=== PATIENT | female | born 2000 | race Caucasian/White ===

== ENCOUNTER 2020-01-25 17:58 | Outpatient (REF) | payer MEDICAID, SELFPAY | END 2020-01-25 17:59 | disposition home or self-care (01) | LOC: HO.LAB 17:58 | PROVIDERS: Visit Provider Internal Medicine | DX: Z20.828 Contact with and (suspected) exposure to other viral communicable diseases (principal) | CPT/HCPCS: C9803; U0003 ==

== ENCOUNTER 2022-10-11 05:15 | Emergency (ER) | payer OTHER, SELFPAY ==
--- NOTE | ~2022-10-11 | US_ITS ---
EXAMINATION: US PELVIS CLINICAL INFORMATION: Right pelvic pain COMPARISON: None available. TECHNIQUE: Ultrasound of the pelvis is performed using both transabdominal and transvaginal transducers along with Doppler. Transvaginal imaging is performed due to inadequate visualization transabdominally. FINDINGS: Uterus: The uterus is anteverted and measures 7.6 x 1.8 x 3.7 cm. The double wall endometrial thickness is 5 mm. The uterus is smooth in contour and has normal myometrial echogenicity. No visible fibroid. Adnexa: Both ovaries are visualized. There is normal color flow to the adnexa. There is no ovarian torsion. There is no pelvic ascites or fluid collection. Normal arterial and venous spectral waveforms are seen bilaterally. Right ovary measures 7.4 x 5.2 x 7.4 cm. There is a simple appearing right ovarian cyst measuring 6.9 x 5.1 x 6.8 cm . Left ovary measures 2.8 x 1.9 x 2 cm. US/US pelvic and transvaginal IMPRESSION: No evidence of active ovarian torsion at this time. 6.9 cm right ovarian cyst likely simple. Consider short-term follow-up US or MR w/IV contrast in less than 3 months. Reference: Radiology 2019 Nov;293(2):359-371
[2022-10-11 05:19] VITALS: BP 151/92; PULSE 79; RESP 16; TEMP 37.1; O2SAT 100; BMI 29.7
[2022-10-11 05:33] VITALS: BP 150/76; PULSE 99; RESP 17; TEMP 36.9; O2SAT 100
[2022-10-11 05:52] LABS: Hematocrit 38.7 % (37.0-47.0); Hemoglobin 13.3 g/dl (12.0-16.0); Mean Corpuscular HGB Conc 34.4 g/dl (31.0-35.0); Mean Corpuscular Volume 87.4 fL (80.0-98.0); Mean Platelet Volume 10.7 fL (9.4-12.3); Platelet Count 245 X10*3/uL (160-400); Red Blood Count 4.43 X10*6/uL (4.20-5.50); Red Cell Distribution Width 12.3 % (11.0-16.0); White Blood Count 6.3 X10*3/uL (4.8-10.8)
--- NOTE | 2022-10-11 05:54 | ED.ABDPAIN ---
HPI - Abdominal Pain General Chief Complaint: Abdominal Pain Stated Complaint: Abd pain Time Seen by Provider: 10/11/22 05:54 Source: patient Mode of arrival: ambulatory Limitations: no limitations History of Present Illness HPI narrative: Patient otherwise healthy noticed pain in right lower quadrant for the last 5 days off and on no nausea vomited only once no radiation of pain with movements or a food no fever or chills does have urge to urinate but no dysuria frequency no history of hematuria no history of kidney stone or ovarian cyst no vaginal discharge Related Data Previous Rx's Medication Instructions Recorded ibuprofen 600 mg tablet 600 mg PO Q6H PRN fever or pain 10/11/22 #30 tabs tramadol 50 mg tablet 50 mg PO Q6H PRN pain #20 tabs 10/11/22 Allergies Allergy/AdvReac Type Severity Reaction Status Date / Time No Known Allergies Allergy Verified 10/11/22 05:26 Review of Systems Review of Systems Yes all other systems are reviewed and are negative PMFSH Social History Social History Advance Directives: No Advance Directives Information Provided: Yes Physical Exam ED Vital Signs: Vital Signs - 24 hr 10/11/22 05:19 10/11/22 05:33 Temperature 98.7 F 98.5 F Pulse Rate 79 99 Respiratory Rate 16 17 Blood Pressure 151/92 H 150/76 H Pulse Oximetry 100 100 Oxygen Delivery Method Room Air Room Air BMI result Body Mass Index 29.7 Appearance: Alert. Oriented X3. No acute distress. ENT: Pharynx normal. Oral Mucosa moist Neck: Normal inspection. Neck supple. CVS: Normal heart rate and rhythm. Pulses normal. Respiratory: No respiratory distress. Equal air entry bilateral, no wheezing/rales/rhonchi Abdomen: Soft, mild deep tenderness right lower quadrant no rebound tenderness or guarding. Bowel sounds are present, no mass palpable, no CVA tenderness Skin: Skin warm and dry. Normal skin color. Normal skin turgor. Extremities: No lower extremity edema. No calf tenderness Neuro: Oriented X 3. Medical Decision Making Medical Decision Making MDM Narrative: Patient nonspecific pain in right lower abdomen for last 5 days with normal labs unlikely appendicitis/kidney stone will get ultrasound to rule out ovarian cyst Patient ultrasound showed 7 cm ovarian cyst with good blood flow no signs of torsion patient without any significant pain advised to follow with [facility] Differential Diagnosis Differential Diagnoses: The differential diagnosis associated with the presentation includes Ovarian cyst/kidney stone/appendicitis/UTI Lab Data MDM Lab Attestation statement: I reviewed the patient's lab results. 10/11/22 05:44 10/11/22 05:44 Labs: Lab Results 10/11/22 10/11/22 10/11/22 Range/Units 05:44 05:44 05:44 WBC 6.3 (4.8-10.8) X10*3/uL RBC 4.43 (4.20-5.50) X10*6/uL Hgb 13.3 (12.0-16.0) g/dl Hct 38.7 (37.0-47.0) % MCV 87.4 (80.0-98.0) fL MCH 30.0 (27.0-33.0) pg MCHC 34.4 (31.0-35.0) g/dl RDW 12.3 (11.0-16.0) % Plt Count 245 (160-400) X10*3/uL MPV 10.7 (9.4-12.3) fL Absolute Nucleated RBC 0.000 (0.0-0.012) X10*3/uL Nucleated RBC % (auto) 0.0 (0.0-0.2) /100WBC Sodium 141 (135-145) mmol/L Potassium 3.2 L (3.3-5.1) mmol/L Chloride 110 H (96-108) mmol/L Carbon Dioxide 23 (22-29) mmol/L Anion Gap 11 L (12-20) BUN 6 L (9-16) mg/dL Creatinine 0.77 (0.5-1.4) mg/dL Estim Creat Clear Calc 114.2 Estimated GFR > 60 Random Glucose 117 H (60-115) mg/dL Calcium 10.0 (8.4-10.2) mg/dL Total Bilirubin 0.8 (0.0-1.0) mg/dL AST 14 (5-31) U/L ALT 18 (0-31) U/L Alkaline Phosphatase 40 (39-117) U/L Total Protein 7.6 (6.5-8.0) g/dL Albumin 4.8 (3.5-5.0) g/dL Lipase 24 (8-78) U/L Beta HCG, Quant < 2 mIU/mL Urine Color Urine Appearance Urine pH (5.0-9.0) Ur Specific [place] (1.005-1.025) Urine Protein (Neg-Trace) mg/dL Urine Glucose (UA) (Negative) mg/dL Urine Ketones (Negative) mg/dL Urine Blood (Negative) Urine Nitrite (Negative) Ur Leukocyte Esterase (Negative) Urine RBC (0-2) /HPF Urine WBC (0-5) /HPF Ur Squamous Epith Cells (0-2) /HPF Urine Bacteria (None Seen) Hyaline Casts (0-2) /LPF 10/11/22 Range/Units 05:44 WBC (4.8-10.8) X10*3/uL RBC (4.20-5.50) X10*6/uL Hgb (12.0-16.0) g/dl Hct (37.0-47.0) % MCV (80.0-98.0) fL MCH (27.0-33.0) pg MCHC (31.0-35.0) g/dl RDW (11.0-16.0) % Plt Count (160-400) X10*3/uL MPV (9.4-12.3) fL Absolute Nucleated RBC (0.0-0.012) X10*3/uL Nucleated RBC % (auto) (0.0-0.2) /100WBC Sodium (135-145) mmol/L Potassium (3.3-5.1) mmol/L Chloride (96-108) mmol/L Carbon Dioxide (22-29) mmol/L Anion Gap (12-20) BUN (9-16) mg/dL Creatinine (0.5-1.4) mg/dL Estim Creat Clear Calc Estimated GFR Random Glucose (60-115) mg/dL Calcium (8.4-10.2) mg/dL Total Bilirubin (0.0-1.0) mg/dL AST (5-31) U/L ALT (0-31) U/L Alkaline Phosphatase (39-117) U/L Total Protein (6.5-8.0) g/dL Albumin (3.5-5.0) g/dL Lipase (8-78) U/L Beta HCG, Quant mIU/mL Urine Color Yellow Urine Appearance Clear Urine pH 6.0 (5.0-9.0) Ur Specific [place] <= 1.005 (1.005-1.025) Urine Protein Negative (Neg-Trace) mg/dL Urine Glucose (UA) Negative (Negative) mg/dL Urine Ketones Negative (Negative) mg/dL Urine Blood Negative (Negative) Urine Nitrite Negative (Negative) Ur Leukocyte Esterase Small (1+) H (Negative) Urine RBC 0-2 (0-2) /HPF Urine WBC 0-5 (0-5) /HPF Ur Squamous Epith Cells 0-2 (0-2) /HPF Urine Bacteria None Seen (None Seen) Hyaline Casts 0-2 (0-2) /LPF Discharge Plan Discharge Clinical Impression: Ovarian cyst Patient Disposition: Home, Self-Care Instructions: Ovarian Cyst (ED) Additional Instructions: Follow-up with [facility] Ibuprofen/tramadol for pain Report to ER if worsening of pain Prescriptions: New tramadol 50 mg tablet 50 mg PO Q6H PRN (Reason: pain) Qty: 20 0RF ibuprofen 600 mg tablet 600 mg PO Q6H PRN (Reason: fever or pain) Qty: 30 0RF
[2022-10-11 05:56] LABS: Appearance Urine Clear; Color Urine Yellow; Glucose Urine UA Negative (Negative); Leukocyte Esterase Urine Small (1+) (Negative); Nitrite Urine Negative (Negative); Specific Gravity - Urine <= 1.005 (1.005-1.025); UMIC TRIGGER UACC YES; Urine Blood Negative (Negative); Urine Ketones Negative (Negative); Urine Protein Negative (Neg-Trace)
[2022-10-11 06:05] LABS: Alanine Aminotransferase 18 U/L (0-31); Albumin Level 4.8 g/dL (3.5-5.0); Alkaline Phosphatase 40 U/L (39-117); Anion Gap 11 (12-20); Aspartate Amino Transferase 14 U/L (5-31); Bilirubin Total 0.8 mg/dL (0.0-1.0); Blood Urea Nitrogen 6 mg/dL (9-16); Carbon Dioxide 23 mmol/L (22-29); Chloride 110 mmol/L (96-108); Creatinine Clr Calc Pharmacy 114.2; Estimated Glomerular Filt Rate > 60; Glucose Random 117 mg/dL (60-115); Lipase 24 U/L (8-78); Potassium 3.2 mmol/L (3.3-5.1); Sodium 141 mmol/L (135-145); Total Protein 7.6 g/dL (6.5-8.0)
[2022-10-11 06:20] LABS: Bacteria Urine None Seen (None Seen); Hyaline Casts Urine 0-2 /LPF (0-2); RBC Urine 0-2 /HPF (0-2); Squamous Epithelial Cell Urine 0-2 /HPF (0-2); UACC Culture Trigger YES; WBC Urine 0-5 /HPF (0-5)
[2022-10-11 06:25] LABS: HCG Quantitative < 2 mIU/mL
== END 2022-10-11 07:18 | disposition home or self-care (01) ==
PROVIDERS: Emergency Provider Internal Medicine; PCP Nurse Practitioner Family
DX: N83.201 Unspecified ovarian cyst, right side (principal); R10.31 Right lower quadrant pain
CPT/HCPCS: 36415; 76830; 76856; 80053; 81001; 83690; 84702; 85027; 87086; 99284

== ENCOUNTER 2022-10-16 04:12 | Emergency (ER) | payer OTHER, SELFPAY ==
--- NOTE | ~2022-10-16 | US_ITS ---
EXAMINATION: US PELVIS CLINICAL INFORMATION: Question right ovarian cyst, torsion/hemorrhage COMPARISON: 10/11/2022 TECHNIQUE: Ultrasound of the pelvis is performed using both transabdominal and transvaginal transducers along with Doppler. Transvaginal imaging is performed due to inadequate visualization transabdominally. FINDINGS: The uterus measures 6.3 cm in length and 2.1 x 3.6 cm in AP and transverse dimensions. Endometrial stripe measures 0.4 cm in thickness. The right ovary measures 7.1 x 5.1 x 7.3 cm and is predominantly composed of a simple appearing cyst which measures up to 6.9 cm in diameter. Left ovary measures 2.7 x 2.1 x 2.3 cm and appears unremarkable. Doppler evaluation demonstrates normal-appearing arterial and venous waveforms in both ovaries. Trace pelvic free fluid is noted. US/US pelvic and transvaginal IMPRESSION: 1. No evidence of active ovarian torsion. 2. Right ovarian cyst measuring up to 6.9 cm in diameter. Findings likely represent a probable benign cyst. Recommend followup ultrasonography in 3-6 months. 3. Trace nonspecific pelvic free fluid.
[2022-10-16 04:24] VITALS: BP 129/74; PULSE 78; RESP 16; TEMP 37.1; O2SAT 98; BMI 29.6
--- NOTE | 2022-10-16 05:33 | PC.NURSE ---
pt was prescribed tramadol and motrin q6 hr for pain. pt was afraid to take the tramadol due to she was not sure what it was for. pt has taken the tramadol 50 mg while in the ed at 0530 for pain provider made aware.
--- NOTE | 2022-10-16 05:43 | ED.FEMALEGU ---
HPI - Female Genitourinary General Chief complaint: Urogenital-Female Stated complaint: Lower back pain Time Seen by Provider: 10/16/22 05:43 Source: patient Mode of arrival: ambulatory Limitations: no limitations History of Present Illness HPI Narrative: Patient with 6.9 cm right ovarian cyst seen on 10/11 was doing better will take any pain medication woke up at 01:00 with increased pain no nausea no vomiting patient has not seen any outside event sales specialist yet scheduled on 11/15 Related Data Previous Rx's Medication Instructions Recorded ibuprofen 600 mg tablet 600 mg PO Q6H PRN fever or pain 10/11/22 #30 tabs tramadol 50 mg tablet 50 mg PO Q6H PRN pain #20 tabs 10/11/22 Allergies Allergy/AdvReac Type Severity Reaction Status Date / Time No Known Allergies Allergy Verified 10/11/22 05:26 Review of Systems Review of Systems: Yes all other systems are reviewed and are negative [facility] Social History Social History Alcohol intake: never Smoked in Last 30 Days: Yes Use of substances other than those prescribed or required for medical reasons: No Advance Directives: No Advance Directives Information Provided: Yes Patient : No Physical Exam Vital Signs: Vital Signs: Last Vital Signs Temp 98.1 F 10/16/22 06:48 Pulse 64 10/16/22 06:48 Resp 16 10/16/22 06:48 BP 110/58 L 10/16/22 06:48 Pulse Ox 99 10/16/22 06:48 O2 Del Method Room Air 10/16/22 06:48 BMI result Body Mass Index 29.6 Appearance: Alert. Oriented X3. No acute distress. CVS: Normal heart rate and rhythm. Pulses normal. Respiratory: No respiratory distress. Equal air entry bilateral, no wheezing/rales/rhonchi Abdomen: Soft deep tenderness suprapubic area no rebound tenderness or guarding. Bowel sounds are present, no mass palpable, no CVA tenderness Skin: Skin warm and dry. Normal skin color. Normal skin turgor. Extremities: No lower extremity edema. No calf tenderness Neuro: Oriented X 3. Medical Decision Making Medical Decision Making MDM Narrative: Patient with large right ovarian cyst no change in the size no bleeding inside or torsion seen advised to follow-up with gynecology Differential Diagnosis Differential Diagnoses: The differential diagnosis associated with the presentation includes Ovarian cyst/hemorrhagic ovarian cyst/torsion of the ovary Radiology Impression Discussion of test interpretation with radiology: I have reviewed the radiologist's reading. Radiologist Impression: [address] [id number] Ultrasound Report Signed Patient: Kassandra Paez MR#: [id number] : 2000 Acct:[id number] Age/Sex: 22 / F ADM Date: 10/16/22 Loc: HO.ED Attending Dr: Ordering Physician: Lebron Guardado MD Date of Service: 10/16/22 Procedure(s): US pelvic and transvaginal Accession Number(s): [id number] cc: Lebron Guardado MD~ EXAMINATION:? US PELVIS CLINICAL INFORMATION:? Question right ovarian cyst, torsion/hemorrhage COMPARISON: 10/11/2022 TECHNIQUE: Ultrasound of the pelvis is performed using both transabdominal and transvaginal transducers along with Doppler. Transvaginal imaging is performed due to inadequate visualization transabdominally. FINDINGS: The uterus measures 6.3 cm in length and 2.1 x 3.6 cm in AP and transverse dimensions. Endometrial stripe measures 0.4 cm in thickness. The right ovary measures 7.1 x 5.1 x 7.3 cm and is predominantly composed of a simple appearing cyst which measures up to 6.9 cm in diameter. Left ovary measures 2.7 x 2.1 x 2.3 cm and appears unremarkable. Doppler evaluation demonstrates normal-appearing arterial and venous waveforms in both ovaries. Trace pelvic free fluid is noted. US/US pelvic and transvaginal IMPRESSION: 1.? No evidence of active ovarian torsion. 2.? Right ovarian cyst measuring up to 6.9 cm in diameter. Findings likely represent a probable benign cyst. Recommend followup ultrasonography in 3-6 months. 3.? Trace nonspecific pelvic free fluid. ? Discharge Plan Discharge Clinical Impression: Ovarian cyst Patient Disposition: Home, Self-Care Instructions: Ovarian Cyst (ED) Additional Instructions: Take ibuprofen as prescribed for pain Your ovarian cyst the same size as before Follow-up with outside event sales specialist Report to the ER if worsening of the pain Prescriptions: No Action tramadol 50 mg tablet 50 mg PO Q6H PRN (Reason: pain) Qty: 20 0RF ibuprofen 600 mg tablet 600 mg PO Q6H PRN (Reason: fever or pain) Qty: 30 0RF Referrals: Contreras Mendez MD [Physician] - 2 weeks Interventions: ED Discharge Assessment Last Done: 10/16/22 06:50 Discharge Date/Time: 10/16/22 06:52
[2022-10-16 06:48] VITALS: BP 110/58; PULSE 64; RESP 16; TEMP 36.7; O2SAT 99
== END 2022-10-16 06:52 | disposition home or self-care (01) ==
PROVIDERS: Emergency Provider Internal Medicine; PCP Nurse Practitioner Family
DX: N83.201 Unspecified ovarian cyst, right side (principal); R10.2 Pelvic and perineal pain
CPT/HCPCS: 76830; 76856; 99284

== ENCOUNTER 2023-05-27 20:01 | Day surgery (SDC) | payer OTHER, SELFPAY ==
--- NOTE | ~2023-05-27 | US_ITS ---
EXAMINATION: US PELVIS CLINICAL INFORMATION: Pelvic pain. History of right ovarian cyst. LMP 04/29/2023. COMPARISON: Pelvic ultrasound 10/16/2022. TECHNIQUE: Ultrasound of the pelvis is performed using both transabdominal and transvaginal transducers along with Doppler. Transvaginal imaging is performed due to inadequate visualization transabdominally. FINDINGS: Uterus is retroverted measuring 7 x 2 x 2.7 cm. No uterine mass. The endometrium measures 0.2 cm without discrete focal abnormality. There is a large unilocular, well-defined, anechoic simple appearing cyst in the right ovary measuring 6.4 x 5.3 x 6.6 cm, previously 6.8 x 5.1 x 6.9 cm on 10/16/2022. No associated septations, mural nodules or vascularity. The right ovarian parenchyma itself is not well seen. The left ovary is normal in morphology with preserved flow at the moment of this examination. The left ovary measures 2.7 x 2.1 x 2.3 cm, 6.8 mL. There is a 2.1 x 1.8 x 2.2 cm simple appearing cyst in the left ovary which is almost certainly benign and for which no imaging follow-up is recommended. Small amount of free fluid is likely physiologic. US/US pelvic and transvaginal IMPRESSION: Again noted large simple appearing right ovarian cyst measuring up to 6.6 cm in size, similar to slightly decreased compared to 10/16/2022. In a premenopausal patient, this is almost certainly benign and follow-up with annual ultrasound is recommended. The right ovary itself is not well seen due to the large overlying cyst, in this context acute ovarian pathology such as torsion cannot be excluded, for which clinical correlation is indicated.
--- NOTE | ~2023-05-27 | US_ITS ---
EXAMINATION: US PELVIS CLINICAL INFORMATION: Pelvic pain. History of right ovarian cyst. LMP 04/29/2023. COMPARISON: Pelvic ultrasound 10/16/2022. TECHNIQUE: Ultrasound of the pelvis is performed using both transabdominal and transvaginal transducers along with Doppler. Transvaginal imaging is performed due to inadequate visualization transabdominally. FINDINGS: Uterus is retroverted measuring 7 x 2 x 2.7 cm. No uterine mass. The endometrium measures 0.2 cm without discrete focal abnormality. There is a large unilocular, well-defined, anechoic simple appearing cyst in the right ovary measuring 6.4 x 5.3 x 6.6 cm, previously 6.8 x 5.1 x 6.9 cm on 10/16/2022. No associated septations, mural nodules or vascularity. The right ovarian parenchyma itself is not well seen. The left ovary is normal in morphology with preserved flow at the moment of this examination. The left ovary measures 2.7 x 2.1 x 2.3 cm, 6.8 mL. There is a 2.1 x 1.8 x 2.2 cm simple appearing cyst in the left ovary which is almost certainly benign and for which no imaging follow-up is recommended. Small amount of free fluid is likely physiologic. US/US pelvic ovarian doppler IMPRESSION: Again noted large simple appearing right ovarian cyst measuring up to 6.6 cm in size, similar to slightly decreased compared to 10/16/2022. In a premenopausal patient, this is almost certainly benign and follow-up with annual ultrasound is recommended. The right ovary itself is not well seen due to the large overlying cyst, in this context acute ovarian pathology such as torsion cannot be excluded, for which clinical correlation is indicated.
[2023-05-27 20:26] VITALS: BP 148/70; PULSE 69; RESP 18; TEMP 36.9; O2SAT 100; BMI 28.0
--- NOTE | 2023-05-27 20:26 | ED_ITS ---
HPI - General Adult General Chief complaint: Abdominal Pain Stated complaint: ovarian cyst/painful Time Seen by Provider: 05/27/23 22:05 Related Data Previous Rx's Medication Instructions Recorded ibuprofen 600 mg tablet 600 mg PO Q6H PRN fever or pain 10/11/22 #30 tabs tramadol 50 mg tablet 50 mg PO Q6H PRN pain #20 tabs 10/11/22 Allergies Allergy/AdvReac Type Severity Reaction Status Date / Time No Known Allergies Allergy Verified 10/11/22 05:26 [facility] Social History Social History Alcohol intake: never Advance Directives: No Advance Directives Information Provided: No Physical Exam ED Vital Signs: Vital Signs - 24 hr 05/27/23 20:26 05/27/23 22:41 05/27/23 23:11 Temperature 98.4 F 98.7 F 99.2 F Pulse Rate 69 71 67 Respiratory Rate 18 16 18 Blood Pressure 148/70 H 137/50 L 144/60 H Pulse Oximetry 100 100 99 Oxygen Delivery Method Room Air Room Air Room Air BMI result Body Mass Index 28.0 Course Course Course Narrative: This is a Rapid Medical Examination (RME) in triage, full HPI, ROS, assessment and plan per primary provider in the Main ED. Kassandra is a 22 year old female with history of known right ovarian side (per patient approx. 7cm) presenting today for evaluation of 8/10 worsening right lower quadrant for the past 2-3 hours. Kassandra states that the pain initally started 1 week ago and was intermittent but it is now constant. No nausea or vomiting. Denies chance of . Plan: US transvaginal with doppler flow r/o torsion, labs, UA Medications Administered Discontinued Medications Generic Name Dose Route Start Last Admin Trade Name Freq PRN Reason Stop Dose Admin Hydromorphone HCl 0.5 mg 05/27/23 22:17 05/27/23 22:36 Hydromorphone Hcl 0.5 Mg/0.5 Ml Syringe IVPUSH 05/27/23 22:18 0.5 mg ONCE ONE Administration Protocol Sodium Chloride 1,000 mls @ 999 mls/hr 05/27/23 22:30 05/27/23 22:32 Ns IV 05/27/23 23:30 999 mls/hr .Q1H1M JOHN Administration Ondansetron HCl 4 mg 05/27/23 22:20 05/27/23 22:36 Ondansetron Hcl 4 Mg/2 Ml Vial IVPUSH 05/27/23 22:21 4 mg ONCE ONE Administration Medical Decision Making Lab Data 05/27/23 20:35 05/27/23 20:35 Labs: Lab Results 05/27/23 Range/Units 20:35 WBC 6.9 (4.8-10.8) X10*3/uL RBC 4.38 (4.20-5.50) X10*6/uL Hgb 13.2 (12.0-16.0) g/dl Hct 39.1 (37.0-47.0) % MCV 89.3 (80.0-98.0) fL MCH 30.1 (27.0-33.0) pg MCHC 33.8 (31.0-35.0) g/dl RDW 12.5 (11.0-16.0) % Plt Count 219 (160-400) X10*3/uL MPV 11.1 (9.4-12.3) fL Immature Gran % (Auto) 0.3 (0.0-0.4) % Neut % (Auto) 60.2 (45-73) % Lymph % (Auto) 31.5 (20-40) % [place] % (Auto) 7.0 (2-11) % Eos % (Auto) 0.7 (0-4) % Baso % (Auto) 0.3 (0-2) % Lymph # (Auto) 2.2 (1.2-4.9) X10*3/uL [place] # (Auto) 0.5 (0.1-1.2) X10*3/uL Eos # (Auto) 0.1 (0.0-0.4) X10*3/uL Baso # (Auto) 0.0 (0.0-0.2) X10*3/uL Abs Immat Gran (auto) 0.02 (0.00-0.03) X10*3/uL Absolute Neuts (auto) 4.1 (2.0-8.3) x10*3/uL Absolute Nucleated RBC 0.000 (0.0-0.012) X10*3/uL Nucleated RBC % (auto) 0.0 (0.0-0.2) /100WBC Sodium 140 (135-145) mmol/L Potassium 3.7 (3.3-5.1) mmol/L Chloride 109 H (96-108) mmol/L Carbon Dioxide 22 (22-29) mmol/L Anion Gap 13 (12-20) BUN 5 L (9-16) mg/dL Creatinine 0.64 (0.5-1.4) mg/dL Estim Creat Clear Calc 133.5 Estimated GFR > 60 Random Glucose 104 (60-115) mg/dL Calcium 9.6 (8.4-10.2) mg/dL Magnesium 1.9 (1.6-2.6) mg/dL Total Bilirubin 0.4 (0.0-1.0) mg/dL Direct Bilirubin 0.2 (0.0-0.5) mg/dL AST 12 (5-31) U/L ALT 15 (0-31) U/L Alkaline Phosphatase 38 L (39-117) U/L Total Protein 7.1 (6.5-8.0) g/dL Albumin 4.4 (3.5-5.0) g/dL Beta HCG, Quant < 2 mIU/mL Discharge Plan Discharge Clinical Impression: Ovarian torsion Patient Disposition: Admitted As Inpatient
[2023-05-27 20:58] LABS: MANUAL DIFF FLAG NO
[2023-05-27 21:00] LABS: Basophils Percent Auto 0.3 % (0-2); Eosinophils Absolute Auto 0.1 X10*3/uL (0.0-0.4); Eosinophils Percent Auto 0.7 % (0-4); Hematocrit 39.1 % (37.0-47.0); Hemoglobin 13.2 g/dl (12.0-16.0); Imm Gran Abs Auto 0.02 X10*3/uL (0.00-0.03); Imm Gran Pct Auto 0.3 % (0.0-0.4); Lymphocytes Absolute Auto 2.2 X10*3/uL (1.2-4.9); Lymphocytes Percent Auto 31.5 % (20-40); Mean Corpuscular HGB Conc 33.8 g/dl (31.0-35.0); Mean Corpuscular Hemoglobin 30.1 pg (27.0-33.0); Mean Corpuscular Volume 89.3 fL (80.0-98.0); Mean Platelet Volume 11.1 fL (9.4-12.3); Monocytes Absolute Auto 0.5 X10*3/uL (0.1-1.2); Neutrophils Absolute Auto 4.1 x10*3/uL (2.0-8.3); Neutrophils Percent Auto 60.2 % (45-73); Platelet Count 219 X10*3/uL (160-400); Red Blood Count 4.38 X10*6/uL (4.20-5.50); Red Cell Distribution Width 12.5 % (11.0-16.0); White Blood Count 6.9 X10*3/uL (4.8-10.8)
[2023-05-27 21:13] LABS: Alanine Aminotransferase 15 U/L (0-31); Albumin Level 4.4 g/dL (3.5-5.0); Alkaline Phosphatase 38 U/L (39-117); Anion Gap 13 (12-20); Aspartate Amino Transferase 12 U/L (5-31); Bilirubin Direct 0.2 mg/dL (0.0-0.5); Bilirubin Total 0.4 mg/dL (0.0-1.0); Blood Urea Nitrogen 5 mg/dL (9-16); Calcium 9.6 mg/dL (8.4-10.2); Carbon Dioxide 22 mmol/L (22-29); Chloride 109 mmol/L (96-108); Creatinine Clr Calc Pharmacy 133.5; Estimated Glomerular Filt Rate > 60; Glucose Random 104 mg/dL (60-115); Magnesium 1.9 mg/dL (1.6-2.6); Potassium 3.7 mmol/L (3.3-5.1); Sodium 140 mmol/L (135-145); Total Protein 7.1 g/dL (6.5-8.0)
--- NOTE | 2023-05-27 22:20 | ED.ABDPAIN ---
HPI - Abdominal Pain General Chief Complaint: Abdominal Pain Stated Complaint: ovarian cyst/painful Time Seen by Provider: 05/27/23 22:05 History of Present Illness HPI narrative: Patient is a 22-year-old female with a history of ovarian cyst. Patient has a known right-sided ovarian cyst that was 7 cm in size in September. No history of torsion. Normally gets seen at [facility]. Presented today with having increasing pain for the last 3 hours. There has no fever no chills. Patient does not think she is as she has not sexually active. Did not miss her menstruation. The pain is sharp localized very similar to previous. No vaginal discharge. No chest pain. No appetite. Patient from home. Related Data Previous Rx's Medication Instructions Recorded ibuprofen 600 mg tablet 600 mg PO Q6H PRN fever or pain 10/11/22 #30 tabs tramadol 50 mg tablet 50 mg PO Q6H PRN pain #20 tabs 10/11/22 Allergies Allergy/AdvReac Type Severity Reaction Status Date / Time No Known Allergies Allergy Verified 10/11/22 05:26 Review of Systems Review of Systems Positive abdominal pain Yes all other systems are reviewed and are negative [facility] Past Medical History Attestation statement: The following information was validated with the patient. Social History Social History Alcohol intake: never Advance Directives: No Advance Directives Information Provided: No Physical Exam ED Vital Signs: Vital Signs - 24 hr 05/27/23 20:26 05/27/23 22:41 05/27/23 23:11 Temperature 98.4 F 98.7 F 99.2 F Pulse Rate 69 71 67 Respiratory Rate 18 16 18 Blood Pressure 148/70 H 137/50 L 144/60 H Pulse Oximetry 100 100 99 Oxygen Delivery Method Room Air Room Air Room Air BMI result Body Mass Index 28.0 Appearance: Alert. Oriented X3. No acute distress. Eyes: Pupils equal, round and reactive to light. ENT: Pharynx normal. Neck: Normal inspection. Neck supple. No lymph nodes noted. No crepitus CVS: Normal heart rate and rhythm. Pulses normal. Normal S1 and S2 Respiratory: No respiratory distress. Breath sounds normal. No Wheezing. No rales Abdomen: Soft, mild tenderness in the right lower quadrant. No rigidity. No distention. good BS x4 Skin: Skin warm and dry. Normal skin color. Normal skin turgor. Extremities: No lower extremity edema. Neurovascular intact to all extremities. No Lacerations. No Rash Neuro: Oriented X 3. No motor deficit. No sensory deficit. Moving all extermities. No slurred speech Medical Decision Making Medical Decision Making [facility] Narrative: Patient presented today with having right-sided abdominal pain over the last few hours. Has a known history of ovarian cysts on the right side. Had a previous ultrasound done here in September of 2022. Had a repeat ultrasound done today can not rule out the possibility of torsion. Patient's case discussed with OBGYN. They came and evaluated the patient. Will take patient to the OR for further delineation. Patient given pain medication. test is negative there has no evidence of -related issue. LFTs are normal. Going to the OR. Differential Diagnosis Differential Diagnoses: The differential diagnosis associated with the presentation includes Ovarian cyst, torsion, related issue, ectopic Admission/Observation Consideration of admission/observation: Escalation of care including admission/observation considered Consult Healthcare Provider Management of the patient was discussed with: School Social Worker (Dr. Vanessa sahu from OBGYN) Lab Data [facility] Lab Attestation statement: I reviewed the patient's lab results. 05/27/23 20:35 05/27/23 20:35 Labs: Lab Results 05/27/23 Range/Units 20:35 WBC 6.9 (4.8-10.8) X10*3/uL RBC 4.38 (4.20-5.50) X10*6/uL Hgb 13.2 (12.0-16.0) g/dl Hct 39.1 (37.0-47.0) % MCV 89.3 (80.0-98.0) fL MCH 30.1 (27.0-33.0) pg MCHC 33.8 (31.0-35.0) g/dl RDW 12.5 (11.0-16.0) % Plt Count 219 (160-400) X10*3/uL MPV 11.1 (9.4-12.3) fL Immature Gran % (Auto) 0.3 (0.0-0.4) % Neut % (Auto) 60.2 (45-73) % Lymph % (Auto) 31.5 (20-40) % [place] % (Auto) 7.0 (2-11) % Eos % (Auto) 0.7 (0-4) % Baso % (Auto) 0.3 (0-2) % Lymph # (Auto) 2.2 (1.2-4.9) X10*3/uL [place] # (Auto) 0.5 (0.1-1.2) X10*3/uL Eos # (Auto) 0.1 (0.0-0.4) X10*3/uL Baso # (Auto) 0.0 (0.0-0.2) X10*3/uL Abs Immat Gran (auto) 0.02 (0.00-0.03) X10*3/uL Absolute Neuts (auto) 4.1 (2.0-8.3) x10*3/uL Absolute Nucleated RBC 0.000 (0.0-0.012) X10*3/uL Nucleated RBC % (auto) 0.0 (0.0-0.2) /100WBC Sodium 140 (135-145) mmol/L Potassium 3.7 (3.3-5.1) mmol/L Chloride 109 H (96-108) mmol/L Carbon Dioxide 22 (22-29) mmol/L Anion Gap 13 (12-20) BUN 5 L (9-16) mg/dL Creatinine 0.64 (0.5-1.4) mg/dL Estim Creat Clear Calc 133.5 Estimated GFR > 60 Random Glucose 104 (60-115) mg/dL Calcium 9.6 (8.4-10.2) mg/dL Magnesium 1.9 (1.6-2.6) mg/dL Total Bilirubin 0.4 (0.0-1.0) mg/dL Direct Bilirubin 0.2 (0.0-0.5) mg/dL AST 12 (5-31) U/L ALT 15 (0-31) U/L Alkaline Phosphatase 38 L (39-117) U/L Total Protein 7.1 (6.5-8.0) g/dL Albumin 4.4 (3.5-5.0) g/dL Beta HCG, Quant < 2 mIU/mL Radiology Impression Discussion of test interpretation with radiology: I have reviewed the radiologist's reading. Independent Historian Clinical information obtained from an independent historian. History obtained from or confirmed by: Spouse External Record Review External record reviewed: Prior outpatient radiology Chronic Conditions History of ovarian cysts Medications Administered Discontinued Medications Generic Name Dose Route Start Last Admin Trade Name Freq PRN Reason Stop Dose Admin Hydromorphone HCl 0.5 mg 05/27/23 22:17 05/27/23 22:36 Hydromorphone Hcl 0.5 Mg/0.5 Ml Syringe IVPUSH 05/27/23 22:18 0.5 mg ONCE ONE Administration Protocol Sodium Chloride 1,000 mls @ 999 mls/hr 05/27/23 22:30 05/27/23 22:32 Ns IV 05/27/23 23:30 999 mls/hr .Q1H1M JOHN Administration Ondansetron HCl 4 mg 05/27/23 22:20 05/27/23 22:36 Ondansetron Hcl 4 Mg/2 Ml Vial IVPUSH 05/27/23 22:21 4 mg ONCE ONE Administration Critical Care Time Critical Care Time Critical Care Time: Yes Total Critical Care Time: 40 Attestation: I have personally provided 40 minutes of critical care time exclusive of time spent on separately billable procedures. ?Time includes review of lab data, radiology results, discussion with consultants, and monitoring for potential decompensation. ?Interventions were performed as documented above Discharge Plan Discharge Clinical Impression: Ovarian torsion Patient Disposition: Admitted As Inpatient
[2023-05-27] MEDS: 0.9 % Sodium Chloride 1,000 ML 999 ML IV (22:32)
[2023-05-27] MEDS: HYDROmorphone HCl 0.5 MG/0.5 ML SYRINGE IVPUSH (22:36)
[2023-05-27] MEDS: ondansetron HCL 4 MG/2 ML VIAL IVPUSH (22:36)
[2023-05-27 22:41] VITALS: BP 137/50; PULSE 71; RESP 16; TEMP 37.1; O2SAT 100
--- NOTE | 2023-05-27 22:44 | PC.NURSE ---
IV access obtained #20 R-AC , fluids started and meds given as ordered.
[2023-05-27 22:48] LABS: HCG Quantitative < 2 mIU/mL
[2023-05-27 23:11] VITALS: BP 144/60; PULSE 67; RESP 18; TEMP 37.3; O2SAT 99
--- NOTE | 2023-05-27 23:24 | PM.GYNCN ---
APARTMENT MAINTENANCE MANAGER - CN: HPI Data of Consult Consult date: 05/27/23 Primary Care Provider: Serena Jackson NP Consult Narrative Narrative: I was consulted on Kassandra Paez who is a 22 year old female Kassandra with history of known right ovarian side over the last year presented to emergency room complaining of acute sudden onset of sharp right lower quadrant pain that started around 19:30 associated with nausea and vomiting, no vaginal bleeding or discharge, no other associated symptoms. The pain started a week ago and was intermittent but it is now constant. The patient received Dilaudid and states that she is still having significant pelvic pain , 10/03. cc:: CC: OB [facility] Social History Social History Alcohol intake: never Comment: medicated Advance Directives: No Advance Directives Information Provided: No Meds Allergies Allergy/AdvReac Type Severity Reaction Status Date / Time No Known Allergies Allergy Verified 06/01/23 19:33 Active Medications: Current Medications Sodium Chloride (Ns) 1,000 mls @ 999 mls/hr IV .Q1H1M JOHN Stop: 05/27/23 23:30 Last Admin: 05/27/23 22:32 Dose: 999 mls/hr APARTMENT MAINTENANCE MANAGER Physical Exam Vitals Vital signs: Temp Pulse Resp BP Pulse Ox O2 Del Method 99.2 F 67 18 144/60 H 99 Room Air 05/27/23 23:11 05/27/23 23:11 05/27/23 23:11 05/27/23 23:11 05/27/23 23:11 05/27/23 23:11 BMI result Body Mass Index 28.0 Abdomen Auscultation/Inspection/Palpation: Normal bowel sounds, Soft and Tenderness (Right lower quadrant tenderness) Female Genitalia (Pelvic) Vulva: No lesions Vagina: Nontender Cervix: Grossly normal Uterus: Normal size Adnexa/Parametria: Adnexal Tenderness: Right and Adnexal Mass: Right (In the cul-de-sac) APARTMENT MAINTENANCE MANAGER - Results Labs 05/27/23 20:35 05/27/23 20:35 Labs: Short CBC 05/27/23 Range/Units 20:35 WBC 6.9 (4.8-10.8) X10*3/uL Hgb 13.2 (12.0-16.0) g/dl Hct 39.1 (37.0-47.0) % Plt Count 219 (160-400) X10*3/uL BMP 05/27/23 20:35 Sodium 140 Potassium 3.7 Chloride 109 H Carbon Dioxide 22 BUN 5 L Creatinine 0.64 Calcium 9.6 Liver Function 05/27/23 Range/Units 20:35 Total Bilirubin 0.4 (0.0-1.0) mg/dL Direct Bilirubin 0.2 (0.0-0.5) mg/dL AST 12 (5-31) U/L ALT 15 (0-31) U/L Alkaline Phosphatase 38 L (39-117) U/L Albumin 4.4 (3.5-5.0) g/dL Imaging US - abdomen: Radiologist's impression: ITS Impressions Doppler Study Ultrasound 05/27/23 21:28 IMPRESSION: Again noted large simple appearing right ovarian cyst measuring up to 6.6 cm in size, similar to slightly decreased compared to 10/16/2022. In a premenopausal patient, this is almost certainly benign and follow-up with annual ultrasound is recommended. The right ovary itself is not well seen due to the large overlying cyst, in this context acute ovarian pathology such as torsion cannot be excluded, for which clinical correlation is indicated. Pelvic/Transvag US 05/27/23 21:28 IMPRESSION: Again noted large simple appearing right ovarian cyst measuring up to 6.6 cm in size, similar to slightly decreased compared to 10/16/2022. In a premenopausal patient, this is almost certainly benign and follow-up with annual ultrasound is recommended. The right ovary itself is not well seen due to the large overlying cyst, in this context acute ovarian pathology such as torsion cannot be excluded, for which clinical correlation is indicated. Assessment and Plan (1) Ovarian torsion: Status: Acute Plan Discussed with the patient the finding on ultrasound 6.6 cm simple ovarian cyst causing significant pelvic pain not relieved with Dilaudid in addition explained to the patient that ovarian torsion could not be ruled out by ultrasound Doppler, therefore, I recommend laparoscopic right ovarian cystectomy, possible detorsion , possible oophorectomy. All the pros and cons were discussed with the patient including the risks including but not limited to: Risk of bleeding, infection, possible injury to bladder, bowel, ureter, bladder, possible injury to vessels and need for blood transfusion with all its risks including HIV, hepatitis-B and C and other blood borne pathogens, possible conversion to laparotomy, possible negative impact on future fertility. All questions answered, the patient verbalized understanding agreed with the plan and signed the consent.
--- NOTE | 2023-05-27 23:28 | MHC.EDTECH ---
Patient was changed into hospital attire,placed on the cafeteria monitor,vitals taken,belongings list completed and copy placed in chart. Assisted with a pelvic exam,swabs obtained and sent to lab, patient tolerated procedure well. call liao in reach
[2023-05-28] VITALS: BP 139/68; PULSE 58; RESP 16; TEMP 37.3; O2SAT 98
--- NOTE | 2023-05-28 00:03 | MHC.EDTECH ---
Type N Screen drawn and applied band to right wrist,vitals taken,attempted to get a urine sample patient is unable to go at this time,RN aware.
[2023-05-28] MEDS: HYDROmorphone HCl 0.5 MG/0.5 ML SYRINGE IVPUSH (00:06)
--- NOTE | 2023-05-28 00:11 | P.CONAN_ITS ---
HPI - Anesthesia Eval Consult details Narrative: ovarian torsion [facility] Family History Family history of problems with anesthesia: No Surgical History History of Problems with Anesthesia: No Social History Social History Alcohol intake: never Meds Allergies Allergy/AdvReac Type Severity Reaction Status Date / Time No Known Allergies Allergy Verified 10/11/22 05:26 Exam Height,Weight and Vital Signs: Height 5 ft 4 in Weight 74 kg Last Vital Signs Temp 99.1 F 05/28/23 00:00 Pulse 58 05/28/23 00:00 Resp 16 05/28/23 00:00 BP 139/68 05/28/23 00:00 Pulse Ox 98 05/28/23 00:00 O2 Del Method Room Air 05/28/23 00:00 Pertinent Lab Results Pertinent Lab Results: Laboratory Tests 05/27/23 20:35 WBC 6.9 RBC 4.38 Hgb 13.2 Hct 39.1 MCV 89.3 MCH 30.1 MCHC 33.8 RDW 12.5 Plt Count 219 MPV 11.1 Immature Gran % (Auto) 0.3 Neut % (Auto) 60.2 Lymph % (Auto) 31.5 [place] % (Auto) 7.0 Eos % (Auto) 0.7 Baso % (Auto) 0.3 Lymph # (Auto) 2.2 [place] # (Auto) 0.5 Eos # (Auto) 0.1 Baso # (Auto) 0.0 Abs Immat Gran (auto) 0.02 Absolute Neuts (auto) 4.1 Absolute Nucleated RBC 0.000 Nucleated RBC % (auto) 0.0 Sodium 140 Potassium 3.7 Chloride 109 H Carbon Dioxide 22 Anion Gap 13 BUN 5 L Creatinine 0.64 Estim Creat Clear Calc 133.5 Estimated GFR > 60 Random Glucose 104 Calcium 9.6 Magnesium 1.9 Total Bilirubin 0.4 Direct Bilirubin 0.2 AST 12 ALT 15 Alkaline Phosphatase 38 L Total Protein 7.1 Albumin 4.4 Beta HCG, Quant < 2 Airway Mallampati Class: II TM Dist: >3cm Neck ROM: Full Loose/Missing/Broken Teeth: No Heart: RRR Lungs: CTA Assessment and Plan Assessment Anesthesia Assessment: Anesthesia Plan Discussed and Chart Reviewed Final Anesthetic Review Family History of Problems with Anesthesia: No History of Problems with Anesthesia: No NPO: Yes ASA Class: I and Emergency Final Preanesthetic Review: No Changes in Pt Med Stat, Meds/Allgs Chart Reviewed, Consent Obtained/Reviewed and Anes Risks/Benef Reviewed Patient Risk: Intermediate Procedure Risk: Intermediate Anesthetic Plan Anesthetic Plan: GA Disposition: Standard PACU
[2023-05-28 01:03] LABS: CT PCR NOT DETECTED (Not Detect.); NG PCR NOT DETECTED (Not Detect.)
--- NOTE | 2023-05-28 02:10 | W.PM.OPN ---
Operative Note Operative Note Date of Service: 05/28/23 Narrative: PREOPERATIVE DIAGNOSIS:?Ovarian cyst rule out torsion POSTOPERATIVE DIAGNOSIS: 7 cm right simple ovarian cyst with torsion x2 Procedure: laparoscopic, right ovarian detorsion and right ovarian cystectomy QBL: Minimal Anesthesia: TERESA SURGEON:? Contreras Mendez MD?? Web Press Operator Helper Offset:None Complications: None Pathology: Right ovarian cyst wall DESCRIPTION OF PROCEDURE:?The patient was taken to the OR where general anesthesia was easily obtained. The patient was then prepped and draped in a sterile fashion and placed in dorsal lithotomy position. A speculum was introduced into the patient?s vagina for cervical visualization. a was introduced into the patient?s cervix. The single tooth tenaculum was then removed and hemostasis was assured?using pressure. a Parra catheter?was inserted and clear urine started draining. Gloves were changed to clean ones. Attention was then drawn to the abdomen where a 10 mm longitudinal incision was done intra umbilical and carried down all the way to the fascia, which was tented?up using 2 Ria clamps and was nicked in the midline and then extended on both end of the incision?, them using 2 pick?ups the peritoneum?was entered with Metzenbaum scissors and under direct visualization, a 10 mm Schneider trocar was introduced into the patient?s abdomen. Once intraperitoneal placement was confirmed with direct visualization, pneumoperitoneum was started & was easily obtained.Then, two fingerbreadths above the pubic symphysis and towards the?right lower quadrant, under direct visualization, a 5 mm trocar was then introduced into the patient?s abdomen. and a 3rd one on the left?lower quadrant was placed?in a similar manner. The patient was placed in Trendelenburg position, Inspection revealed right ovarian cyst with torsion x2. Using atraumatic grasper, the right ovarian cyst and fallopian tube were detorsed. Attention was then turned to the right ovarian cyst, using ligasure , theovarian cyst was opened and the fluid aspirated then the cyst wall was removed, hemostasis was assured. Specimen were then removed from the patient?s abdomen using endobag from the 10 mm trocar through the umbilicus. Copious irrigation was done. Once good hemostasis was noted from the patient?s abdomen, pneumoperitoneum was deflated and all trocars were removed. Infraumbilical fascia was closed with 0 Vicryl and interrupted suture. The skin was closed with 4-0 Vicryl. The Right and left?lower quadrant ports were closed with 0 Vicryl. Bupivicaine 0.25 10 cc were injected subcuticularly in the 3 incisions. Then speculum was put back in the vagina inspection revealed?hemostasis at the site of the tenaculum, the?sponge stick was removed?from the patient's vagina and Parra was draining clear urine was taken out too. Sponge, lap and needle counts were correct x2. The patient was taken to the recovery room in stable condition.
--- NOTE | 2023-05-28 02:14 | PM.OP ---
Brief Operative Note Date of Service: 05/28/23 Pre-op diagnosis: Right ovarian cyst rule out torsion Post-op diagnosis: same (7 cm ovarian cyst torsion x2) Procedure: Laparoscopic ovarian cystectomy and detorsion Surgeon: Contreras Mendez MD Anesthesia: GETA Was an Veterinary Laboratory Diagnostician used for this Procedure?: No Estimated blood loss (mL): 0 Pathology: other (Right Ovarian cyst wall) Condition: stable Disposition: PACU
[2023-05-28 02:19] VITALS: BP 121/56; PULSE 132; RESP 15; TEMP 36.2; O2SAT 99
[2023-05-28 02:24] VITALS: BP 120/48; PULSE 119; RESP 16; O2SAT 100
[2023-05-28 02:29] VITALS: BP 131/49; PULSE 117; RESP 16; O2SAT 96
[2023-05-28 02:34] VITALS: BP 125/54; PULSE 109; RESP 16; O2SAT 96
[2023-05-28 02:49] VITALS: BP 114/67; PULSE 91; RESP 16; TEMP 37.4; O2SAT 97
[2023-05-28] MEDS: oxyCODONE HCl Immed Release 5 MG TABLET PO (02:58)
== END 2023-05-28 03:03 | disposition home or self-care (01) ==
LOC: HO.ED 23:48 → HO.SSS 05-28 02:19 → HO.ED 05-28 02:19
PROVIDERS: Physician Assistant; Emergency Provider Emergency Medicine Emergency Medical Services; PCP Nurse Practitioner Family; Visit Provider Obstetrics & Gynecology
PROC: 10T24ZZ Resection of Products of Conception, Ectopic, Percutaneous Endoscopic Approach (ICD-10-PCS; CPT 59150; principal; 2023-05-27 00:30)
DX: N83.511 Torsion of right ovary and ovarian pedicle (principal); R10.2 Pelvic and perineal pain
CPT/HCPCS: 58662; 49322; 0353U; 36415; 76830; 76856; 80048; 80076; 83735; 84702; 85025; 86850; 86900; 86901; 88304; 88307; 93975; 96374; 96375; 96376; 99284; 99285; J0131; J1100; J1170; J1885; J2405; J2704; J2795

== ENCOUNTER → 2023-05-28 02:14 | Outpatient (BNV) | payer OTHER, SELFPAY | PROVIDERS: Emergency Provider Emergency Medicine Emergency Medical Services; PCP Nurse Practitioner Family; Visit Provider Obstetrics & Gynecology | DX: N83.511 Torsion of right ovary and ovarian pedicle (principal); N83.291 Other ovarian cyst, right side | CPT/HCPCS: 58662; 99283 ==

== ENCOUNTER 2023-06-01 19:05 | Emergency (ER) | payer OTHER, SELFPAY ==
[2023-06-01 19:29] VITALS: BP 149/80; PULSE 78; RESP 18; TEMP 36.6; O2SAT 100; BMI 20.2
--- NOTE | 2023-06-01 23:04 | ED_ITS ---
HPI - Wound/Laceration General Chief Complaint: Wound/Laceration Stated Complaint: surgery/stitches opened/belly button Time Seen by Provider: 06/01/23 21:43 Source: patient Mode of arrival: ambulatory Limitations: no limitations History of Present Illness HPI narrative: Patient comes to the emergency room complaining that the Steri-Strips over her surgical site have come off. Patient had a laparoscopic ovarian cystectomy and detorsion in the belly button 4 days ago. Patient states that the wound is healing well. No signs of infection, no drainage. No fever or chills. Related Data Previous Rx's ?Medication ?Instructions ?Recorded ibuprofen 600 mg tablet 600 mg PO Q6H PRN fever or pain 10/11/22 #30 tabs tramadol 50 mg tablet 50 mg PO Q6H PRN pain #20 tabs 10/11/22 oxycodone 5 mg capsule 5 mg PO Q4H PRN pain #14 caps 05/28/23 Allergies Allergy/AdvReac Type Severity Reaction Status Date / Time No Known Allergies Allergy Verified 06/01/23 19:33 Review of Systems Review of Systems: Constitutional : No Weight loss, No Fever, No Chills, No Night Sweats, No Fatigue, No Malaise ENT/Mouth : No Hearing loss, No Ear Pain, No Nasal Congestion, No Sinus Pain, No Hoarseness, No sore throat, No Rhinorrhea, No Swallowing Difficulty Eyes: No Eye Pain, No Swelling, No Redness, No Foreign Body, No Discharge, No Vision Changes Cardiovascular : No Chest Pain, No SOB, No Dyspnea on Exertion, No Orthopnea, No Edema, No Palpitations Respiratory : No Cough, No Sputum, No Wheezing, No Smoke Exposure, No Dyspnea Gastrointestinal : No Nausea, No Vomiting, No Diarrhea, No Constipation, No abdominal Pain, No Hematochezia, No Melena Genitourinary : no irregular bleeding, No Dysuria, No Urinary Frequency, No Hematuria, No Urinary Incontinence, No Urgency, No Flank Pain, No Urinary Flow Changes, No Hesitancy Musculoskeletal : No joint pain, No Myalgias, No Joint Swelling Skin : Steri-Strips falling off Neuro : No Weakness, No Numbness, No Paresthesias, No Loss of Consciousness, No Dizziness, No Headache Psych : No Anxiety/Panic, No Depression, No SI/HI/AH/VH, No Social Issues, Heme/Lymph: No Bruising, No Bleeding,No Lymphadenopathy Endocrine : No Polyuria, No Polydipsia, No Temperature Intolerance [facility] Social History Social History Alcohol intake: never Comment: medicated Advance Directives: No Advance Directives Information Provided: No Physical Exam Vital Signs: Vital Signs: Last Vital Signs Temp 97.9 F 06/01/23 19:29 Pulse 78 06/01/23 19:29 Resp 18 06/01/23 19:29 BP 149/80 H 06/01/23 19:29 Pulse Ox 100 06/01/23 19:29 O2 Del Method Room Air 06/01/23 19:29 BMI result Body Mass Index 20.2 Const: Other: Appearance: Alert. Oriented X3. No acute distress. Eyes: Pupils equal, round and reactive to light. ENT: Pharynx normal. Neck: Normal inspection. Neck supple. No lymph nodes noted. No crepitus CVS: Normal heart rate and rhythm. Pulses normal. Normal S1 and S2 Respiratory: No respiratory distress. Breath sounds normal. No Wheezing. No ral es Abdomen: Soft and nontender. No rigidity. No distention. Umbilicus has loose Steri-Strips. Skin within normal limits, no signs of infection Skin: Skin warm and dry. Normal skin color. Normal skin turgor. Extremities: No lower extremity edema. No Lacerations. No Rash Neuro: Oriented X 3. No motor deficit. No sensory deficit. Moving all extremities. No slurred speech. CN 2 through 12 grossly intact Psych: calm, cooperative, normal affect Medical Decision Making Medical Decision Making MDM Narrative: Steri-Strips were removed, the surgical site was cleaned and redressed with Steri-Strips Discharge Plan Discharge Clinical Impression: Wound disruption, post-op, skin Patient Disposition: Home, Self-Care Additional Instructions: Please follow-up with your primary care physician tomorrow. If you have any worsening or new symptoms, please return to the emergency room or call 911 Prescriptions: No Action oxycodone 5 mg capsule 5 mg PO Q4H PRN (Reason: pain) Qty: 14 0RF Rx Instructions: Partial Fill upon patient request. tramadol 50 mg tablet 50 mg PO Q6H PRN (Reason: pain) Qty: 20 0RF ibuprofen 600 mg tablet 600 mg PO Q6H PRN (Reason: fever or pain) Qty: 30 0RF Print Language: Danish
[2023-06-01 23:17] VITALS: BP 149/80; PULSE 78; RESP 18; TEMP 36.6; O2SAT 100
== END 2023-06-01 23:18 | disposition home or self-care (01) ==
PROVIDERS: Emergency Provider Emergency Medicine; PCP Nurse Practitioner Family
DX: T81.30XA Disruption of wound, unspecified, initial encounter (principal); Y83.9 Surgical procedure, unspecified as the cause of abnormal reaction of the patient, or of later complication, without mention of misadventure at the time of the procedure; Y92.9 Unspecified place or not applicable
CPT/HCPCS: 99282

== ENCOUNTER 2023-06-11 15:18 | Outpatient (AMB) | payer OTHER, SELFPAY ==
--- NOTE | 2023-06-11 15:43 | A.OFFVIS_ITS ---
Intake Vital Signs 06/11/23 15:44 BP 110/60 Intake Visit Reasons: post op Allergies No Known Allergies Allergy (Verified 06/01/23 19:33) HPI HPI Comments History of Present Illness Details The patient is presenting 2 weeks post laparoscopic right ovarian detorsion and right ovarian cystectomy. The patient has no complaints. No feverishness, chills, no pain at the incision sites, no GI/ symptoms. The pathology showed the following: Ovarian cyst, cystectomy: -Benign cyst with focal attenuated benig n epithelial lining, consistent with serous cystadenoma. -Benign ovarian tissue with follicle cys t. -Diffuse hemorrhage consistent with tors ion PFSH Social History Alcohol intake: never Comment: medicated Physical Exam GI Other: Incisions= clean/dry/intact Palpation (GI): Soft to palpation and nontender Percussion: Yes normal to percussion Assessment & Plan Assessment & Plan (1) Ovarian torsion: Comment: Status post laparoscopic right ovarian detorsion and ovarian cystectomy Code(s): N83.519 - Torsion of ovary and ovarian pedicle, unspecified side Plan: Discussed with the patient the procedure, the intraoperative findings, and pathology results . The patient was instructed to take a test if she misses her periods and to call for bleeding fever, abdominal pain, nausea or vomiting. All questions answered the patient verbalized understanding. Coding Level of Care Code Est Pt Level 3 (71815) Diagnoses Ovarian torsion N83.519
[2023-06-11 15:44] VITALS: BP 110/60
== END 2023-06-12 07:26 | disposition home or self-care (01) ==
LOC: HO.HWS 15:18
PROVIDERS: PCP Nurse Practitioner Family; Visit Provider Obstetrics & Gynecology
DX: N83.519 Torsion of ovary and ovarian pedicle, unspecified side (principal)
CPT/HCPCS: 99024

== ENCOUNTER → 2023-06-11 15:18 | Outpatient (BNVA) | payer OTHER, SELFPAY | PROVIDERS: PCP Nurse Practitioner Family; Visit Provider Obstetrics & Gynecology | DX: Z48.816 Encounter for surgical aftercare following surgery on the genitourinary system (principal); Z98.890 Other specified postprocedural states | CPT/HCPCS: 99212 ==

== ENCOUNTER 2023-08-22 20:59 | Emergency (ER) | payer OTHER, SELFPAY ==
--- NOTE | ~2023-08-22 | XR_ITS ---
EXAMINATION: XR KNEE, RIGHT CLINICAL INFORMATION: Pain. Question injury. COMPARISON: None available. TECHNIQUE: AP and lateral views of the right knee. FINDINGS: No fracture or joint effusion identified. Alignment is anatomic. Joint spaces appear maintained. No abnormal soft tissue calcification. XR/XR knee RT 2V IMPRESSION: Normal plain film examination of the right knee.
[2023-08-22 21:06] VITALS: BP 142/75; PULSE 76; RESP 16; TEMP 37.1; O2SAT 99; BMI 27.5
--- NOTE | 2023-08-22 21:58 | ED_ITS ---
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 No previous issues to right knee. Patient denies associated numbness or tingling however does report significant discomfort with movement. Patient denies fevers, chills, blunt trauma to the area. Patient taking ibuprofen for pain with little to no relief. Related Data Previous Rx's ?Medication ?Instructions ?Recorded ibuprofen 600 mg tablet 600 mg PO Q6H PRN fever or pain 10/11/22 #30 tabs tramadol 50 mg tablet 50 mg PO Q6H PRN pain #20 tabs 10/11/22 oxycodone 5 mg capsule 5 mg PO Q4H PRN pain #14 caps 05/28/23 acetaminophen 325 mg capsule 325 mg PO Q4H PRN pain #30 caps 08/22/23 (Tylenol) ketorolac 10 mg tablet 10 mg PO TID PRN pain 5 days #15 08/22/23 tabs Allergies Allergy/AdvReac Type Severity Reaction Status Date / Time No Known Allergies Allergy Verified 08/22/23 21:07 Review of Systems Review of Systems: Yes all other systems are reviewed and are negative [facility] Past Medical History Attestation statement: The following information was validated with the patient. Source: old records reviewed and nursing notes reviewed Social History Social History Alcohol intake: never Comment: medicated Advance Directives: No Advance Directives Information Provided: No Do you have a plan to hurt others: No Plan Physical Exam Vital Signs: Vital Signs: Last Vital Signs Temp 98.8 F 08/22/23 21:06 Pulse 76 08/22/23 21:06 Resp 16 08/22/23 21:06 BP 142/75 H 08/22/23 21:06 Pulse Ox 99 08/22/23 21:06 O2 Del Method Room Air 08/22/23 21:06 BMI result Body Mass Index 27.5 vss Appearance: Alert.? Oriented X3.? No acute distress.? Head: Normocephalic, atraumatic, no step-offs or deformities Eyes: Pupils equal, round and reactive to light.? ENT: Pharynx normal.? Neck: Normal inspection.? Neck supple.? CVS: Normal heart rate and rhythm.? Pulses normal.? Respiratory: No respiratory distress.? Breath sounds normal.? Abdomen: Soft and nontender.? Skin: Skin warm and dry.? Normal skin color.? Normal skin turgor.? Extremities: No lower extremity edema.? No calf ttp. 5/5 strength to bilateral upper and lower extremities + TTP to medial aspect of right w/ slight ecchymosis and edema. No laxity to right knee. Negative anterior, posterior drawer and valgus and varus. Negative mcmuray test b/l. Normal sensation distally b/l. No foot drop b/l. Normal cap refil to b/l LE digits. Neuro: Oriented X 3.? No motor deficit.? No sensory deficit. CN 2-12 intact Course Reevaluation(s) Reevaluation #1: X-ray of right knee normal plain film of right knee. Will place patient in a immobilizer and give crutches. Will give Toradol for pain. Educated patient on diagnosis and treatment plan, answered all question, patient verbalizes understanding. At this time patient will be discharged home, advised to return with new or worsening symptoms. Educated on worrisome signs and symptoms and when to return. At this time I feel comfortable discharge home. Time: 22:02 Medical Decision Making Medical Decision Making MDM Narrative: 23-year-old female presents with complaints of right knee pain status post stand pivot and associated knee pain. Work-related injury Physical exam + TTP to medial aspect of right w/ slight ecchymosis and edema. No laxity to right knee. Negative anterior, posterior drawer and valgus and varus. Negative mcmuray test b/l. Normal sensation distally b/l. No foot drop b/l. Normal cap refil to b/l LE digits. Concerns for ligament or tendon injury. Unlikely fracture, dislocation. No signs of neurovascular compromise acute threat to limb. No signs of compartment syndrome. Sprain or strain on the differential. Plan imaging, knee immobilizer, crutches. Will give Toradol for pain control. Differential Diagnosis Differential Diagnoses: The differential diagnosis associated with the presentation includes Concerns for ligament or tendon injury. Unlikely fracture, dislocation. No signs of neurovascular compromise acute threat to limb. No signs of compartment syndrome. Sprain or strain on the differential. Admission/Observation Consideration of admission/observation: Escalation of care including admission/observation considered Unlikely Independent Interpretation I performed an independent interpretation of an: Plain X-Ray (XR/XR knee RT 2V IMPRESSION: Normal plain film examination of the right knee. ) Radiology Impression Discussion of test interpretation with radiology: I have reviewed the radiologist's reading. Prescription Management I considered prescription management with: Pain Medication Critical Care Time Critical Care Time Critical Care Time: No Discharge Plan Discharge Clinical Impression: Knee pain Patient Disposition: Home, Self-Care Instructions: Knee Pain (ED) Additional Instructions: Take your medications as prescribed. If you were prescribed antibiotics today, it is important that you take your medication to their entirety, do not skip any doses, do not finish them early. Follow-up with your primary care provider this week. Return to the emergency department with new or worsening symptoms. Such as fevers, chills, chest pain, shortness of breath, nausea, vomiting, dizziness, headache, vision changes, lethargy In case of emergency call 911 Follow-up with the orthopedic team information below with an week You can take Tylenol as well as Toradol for pain. Toradol has been sent to your pharmacy, you tolerated this well in the department. Please take this as prescribed do not take this with ibuprofen, or other NSAIDs, do not mix this with alcohol. Side effects of this medication including increased risk for bleeding and possible kidney injury. XR/XR knee RT 2V IMPRESSION: Normal plain film examination of the right knee. Prescriptions: New ketorolac 10 mg tablet 10 mg PO TID PRN (Reason: pain) 5 Days Qty: 15 0RF acetaminophen [Tylenol] 325 mg capsule 325 mg PO Q4H PRN (Reason: pain) Qty: 30 0RF No Action oxycodone 5 mg capsule 5 mg PO Q4H PRN (Reason: pain) Qty: 14 0RF Rx Instructions: Partial Fill upon patient request. tramadol 50 mg tablet 50 mg PO Q6H PRN (Reason: pain) Qty: 20 0RF ibuprofen 600 mg tablet 600 mg PO Q6H PRN (Reason: fever or pain) Qty: 30 0RF Referrals: [facility] [place] [facility] [place] [facility] [Provider Group] - 1 week Serena Jackson NP [Primary Care Provider] - 2 days Print Language: Scottish
[2023-08-22] MEDS: Ketorolac Tromethamine 30 MG/ML VIAL IM (22:12)
[2023-08-22 22:21] VITALS: BP 145/64; PULSE 72; RESP 18; TEMP 37.1; O2SAT 99
[2023-08-22 22:23] VITALS: BP 145/64; PULSE 72; RESP 18; TEMP 37.1; O2SAT 99
== END 2023-08-22 22:24 | disposition home or self-care (01) ==
PROVIDERS: Emergency Provider Emergency Medicine; PCP Nurse Practitioner Family
DX: M25.561 Pain in right knee (principal)
CPT/HCPCS: 73560; 96372; 99284; J1885

== ENCOUNTER 2024-05-04 22:20 | Emergency (ER) | payer OTHER, SELFPAY ==
--- NOTE | ~2024-05-04 | XR_ITS ---
CLINICAL HISTORY: possible injury 3 views right ankle Comparison: None Findings: There may be soft tissue swelling. There is no fracture or dislocation. Joint spaces appear normal. Impression: No osseous abnormality. This document has been electronically signed by: Jose Stroud MD on 05/05/2024 02:24:45
[2024-05-04 22:22] VITALS: BP 127/60; PULSE 67; RESP 18; TEMP 36.8; O2SAT 100; BMI 30.2
[2024-05-05 01:04] VITALS: BP 155/91; PULSE 90; RESP 18; TEMP 36.9; O2SAT 100
--- NOTE | 2024-05-05 01:12 | MHC.EDTECH ---
This pct just assumed care of Patient ,vitals taken ,blood drawn and sent to lab ,Patient waiting to see Provider .
[2024-05-05 01:15] LABS: Basophils Percent Auto 0.4 % (0-2); Eosinophils Absolute Auto 0.2 X10*3/uL (0.0-0.4); Hematocrit 35.4 % (37.0-47.0); Imm Gran Abs Auto 0.03 X10*3/uL (0.00-0.03); Imm Gran Pct Auto 0.4 % (0.0-0.4); Lymphocytes Absolute Auto 3.5 X10*3/uL (1.2-4.9); Lymphocytes Percent Auto 41.4 % (20-40); MANUAL DIFF FLAG NO; Mean Corpuscular HGB Conc 33.9 g/dl (31.0-35.0); Mean Corpuscular Hemoglobin 29.2 pg (27.0-33.0); Mean Corpuscular Volume 86.1 fL (80.0-98.0); Mean Platelet Volume 10.7 fL (9.4-12.3); Monocytes Absolute Auto 0.5 X10*3/uL (0.1-1.2); Monocytes Percent Auto 5.5 % (2-11); Neutrophils Absolute Auto 4.2 x10*3/uL (2.0-8.3); Neutrophils Percent Auto 50.3 % (45-73); Platelet Count 235 X10*3/uL (160-400); Red Blood Count 4.11 X10*6/uL (4.20-5.50); Red Cell Distribution Width 12.6 % (11.0-16.0); White Blood Count 8.4 X10*3/uL (4.8-10.8)
[2024-05-05 01:35] LABS: Alanine Aminotransferase 21 U/L (0-31); Albumin Level 4.4 g/dL (3.5-5.0); Alkaline Phosphatase 49 U/L (39-117); Anion Gap 14 (12-20); Aspartate Amino Transferase 17 U/L (5-31); Bilirubin Total 0.4 mg/dL (0.0-1.0); Blood Urea Nitrogen 5 mg/dL (9-16); Calcium 9.6 mg/dL (8.4-10.2); Carbon Dioxide 21 mmol/L (22-29); Chloride 111 mmol/L (96-108); Creatinine Clr Calc Pharmacy 118.7; Estimated Glomerular Filt Rate > 60; Glucose Random 89 mg/dL (60-115); Potassium 4.5 mmol/L (3.3-5.1); Sodium 141 mmol/L (135-145); Total Protein 7.4 g/dL (6.5-8.0)
--- NOTE | 2024-05-05 02:41 | ED.EXTPRO ---
HPI - Extremity Problem General Chief complaint: Extremity Problem Stated complaint: R ankle swelling Time Seen by Provider: 05/05/24 02:11 Source: patient Mode of arrival: ambulatory Limitations: no limitations History of Present Illness ED Provider: Dr. Hilda Erwin HPI Narrative: patient comes to the emergency room complaining of nonpitting edema to the right lateral ankle. Patient states that she noticed this evening that the lateral aspect of the ankle was swollen. Patient denies any recent injuries. patient states that it does not hurt. Patient is able to bear weight. Patient states that she has been active lately, she recently moved house and has been going up and down stairs carrying heavy stuff. Patient denies any calf pain or swelling. Related Data Previous Rx's ?Medication ?Instructions ?Recorded ibuprofen 600 mg tablet 600 mg PO Q6H PRN fever or pain 10/11/22 #30 tabs tramadol 50 mg tablet 50 mg PO Q6H PRN pain #20 tabs 10/11/22 oxycodone 5 mg capsule 5 mg PO Q4H PRN pain #14 caps 05/28/23 acetaminophen 325 mg capsule 325 mg PO Q4H PRN pain #30 caps 08/22/23 (Tylenol) ketorolac 10 mg tablet 10 mg PO TID PRN pain 5 days #15 08/22/23 tabs Allergies Allergy/AdvReac Type Severity Reaction Status Date / Time No Known Allergies Allergy Verified 05/04/24 22:24 Review of Systems Review of Systems: Constitutional : No Weight loss, No Fever, No Chills, No Night Sweats, No Fatigue, No Malaise ENT/Mouth : No Hearing loss, No Ear Pain, No Nasal Congestion, No Sinus Pain, No Hoarseness, No sore throat, No Rhinorrhea, No Swallowing Difficulty Eyes: No Eye Pain, No Swelling, No Redness, No Foreign Body, No Discharge, No Vision Changes Cardiovascular : No Chest Pain, No SOB, No Dyspnea on Exertion, No Orthopnea, No Edema, No Palpitations Respiratory : No Cough, No Sputum, No Wheezing, No Smoke Exposure, No Dyspnea Gastrointestinal : No Nausea, No Vomiting, No Diarrhea, No Constipation, No abdominal Pain, No Hematochezia, No Melena Genitourinary : no irregular bleeding, No Dysuria, No Urinary Frequency, No Hematuria, No Urinary Incontinence, No Urgency, No Flank Pain, No Urinary Flow Changes, No Hesitancy Musculoskeletal : No joint pain, No Myalgias, No Joint Swelling Skin : No Skin Lesions, No rash Neuro : No Weakness, No Numbness, No Paresthesias, No Loss of Consciousness, No Dizziness, No Headache Psych : No Anxiety/Panic, No Depression, No SI/HI/AH/VH, No Social Issues, Heme/Lymph: No Bruising, No Bleeding,No Lymphadenopathy Endocrine : No Polyuria, No Polydipsia, No Temperature Intolerance [facility] Social History Social History Alcohol intake: never Comment: medicated Smoked in Last 30 Days: No Use of substances other than those prescribed or required for medical reasons: No Advance Directives: No Physical Exam Vital Signs: Vital Signs: Last Vital Signs Temp 98.4 F 05/05/24 02:53 Pulse 90 05/05/24 02:53 Resp 18 05/05/24 02:53 BP 155/91 H 05/05/24 02:53 Pulse Ox 100 05/05/24 02:53 O2 Del Method Room Air 05/04/24 22:22 BMI result Body Mass Index 30.2 Medical Decision Making Medical Decision Making [facility] Narrative: My interpretation of us: No acute abnormality in patient's chemistry or hematology. X-ray of the foot / ankle no acute findings patient has no pain in the calf, no swelling in the foot or the calf, only in the lateral malleolus. Discussed with the patient that she likely has a joint effusion. Patient has no pain, no redness. Patient able to bear weight as usual with no pain. Lab Data 05/05/24 01:10 05/05/24 01:10 Labs: Lab Results 05/05/24 Range/Units 01:10 WBC 8.4 (4.8-10.8) X10*3/uL RBC 4.11 L (4.20-5.50) X10*6/uL Hgb 12.0 (12.0-16.0) g/dl Hct 35.4 L (37.0-47.0) % MCV 86.1 (80.0-98.0) fL MCH 29.2 (27.0-33.0) pg MCHC 33.9 (31.0-35.0) g/dl RDW 12.6 (11.0-16.0) % Plt Count 235 (160-400) X10*3/uL MPV 10.7 (9.4-12.3) fL Immature Gran % (Auto) 0.4 (0.0-0.4) % Neut % (Auto) 50.3 (45-73) % Lymph % (Auto) 41.4 H (20-40) % [place] % (Auto) 5.5 (2-11) % Eos % (Auto) 2.0 (0-4) % Baso % (Auto) 0.4 (0-2) % Lymph # (Auto) 3.5 (1.2-4.9) X10*3/uL [place] # (Auto) 0.5 (0.1-1.2) X10*3/uL Eos # (Auto) 0.2 (0.0-0.4) X10*3/uL Baso # (Auto) 0.0 (0.0-0.2) X10*3/uL Abs Immat Gran (auto) 0.03 (0.00-0.03) X10*3/uL Absolute Neuts (auto) 4.2 (2.0-8.3) x10*3/uL Absolute Nucleated RBC 0.000 (0.0-0.012) X10*3/uL Nucleated RBC % (auto) 0.0 (0.0-0.2) /100WBC Sodium 141 (135-145) mmol/L Potassium 4.5 D (3.3-5.1) mmol/L Chloride 111 H (96-108) mmol/L Carbon Dioxide 21 L (22-29) mmol/L Anion Gap 14 (12-20) BUN 5 L (9-16) mg/dL Creatinine 0.74 (0.5-1.4) mg/dL Estim Creat Clear Calc 118.7 Estimated GFR > 60 Random Glucose 89 (60-115) mg/dL Calcium 9.6 (8.4-10.2) mg/dL Total Bilirubin 0.4 (0.0-1.0) mg/dL AST 17 (5-31) U/L ALT 21 (0-31) U/L Alkaline Phosphatase 49 (39-117) U/L Total Protein 7.4 (6.5-8.0) g/dL Albumin 4.4 (3.5-5.0) g/dL Discharge Plan Discharge Clinical Impression: Joint effusion, foot Patient Disposition: Home, Self-Care Instructions: Swollen Joint (ED) Additional Instructions: Please follow-up with your primary care physician tomorrow. If you have any worsening or new symptoms, please return to the emergency room or call 911 Prescriptions: No Action oxycodone 5 mg capsule 5 mg PO Q4H PRN (Reason: pain) Qty: 14 0RF Rx Instructions: Partial Fill upon patient request. ketorolac 10 mg tablet 10 mg PO TID PRN (Reason: pain) 5 Days Qty: 15 0RF acetaminophen [Tylenol] 325 mg capsule 325 mg PO Q4H PRN (Reason: pain) Qty: 30 0RF tramadol 50 mg tablet 50 mg PO Q6H PRN (Reason: pain) Qty: 20 0RF ibuprofen 600 mg tablet 600 mg PO Q6H PRN (Reason: fever or pain) Qty: 30 0RF Stand Alone Forms: Work/School Release Interventions: ED Discharge Assessment Last Done: 05/05/24 02:53 Discharge Date/Time: 05/05/24 02:54 Print Language: Maori
[2024-05-05 02:53] VITALS: BP 155/91; PULSE 90; RESP 18; TEMP 36.9; O2SAT 100
--- NOTE | 2024-05-05 02:53 | PC.NURSE ---
discharge paper work given, pt verbalized understanding no sign of distress. steady gait upon discharge.
== END 2024-05-05 02:54 | disposition home or self-care (01) ==
PROVIDERS: Emergency Provider Emergency Medicine; PCP Nurse Practitioner Family
DX: M25.471 Effusion, right ankle (principal); M25.571 Pain in right ankle and joints of right foot; R60.0 Localized edema
CPT/HCPCS: 36415; 73610; 80053; 85025; 99283; 99284

== ENCOUNTER → 2024-05-05 01:15 | Outpatient (BNV) | payer OTHER, SELFPAY | PROVIDERS: Emergency Provider Emergency Medicine; PCP Nurse Practitioner Family; Visit Provider Radiology Diagnostic Radiology | DX: M25.571 Pain in right ankle and joints of right foot (principal); R22.41 Localized swelling, mass and lump, right lower limb | CPT/HCPCS: 73610 ==